=== PATIENT | female | born 1945 ===

== ENCOUNTER 2021-05-06 05:24 | Day surgery (SDC) | payer OTHER ==
[~2021-05-06 05:24] MED LIST: COZAAR100 MG PO; GLUMETZA500 MG PO; RALAFEN PO; SIMVASTATIN40 MG PO; SYNTHROID100 MCG PO
[2021-05-06] MEDS ORDERED: MACROBID 100 M100 MG PO (09:06)
[2021-05-06] MEDS ORDERED: ULTRACET PO (09:07)
== END 2021-05-06 12:10 | disposition home or self-care (01) ==
LOC: CIR.AMB 05:24
PROVIDERS: ATTEND Obstetrics & Gynecology Gynecology
DX: N81.11 Cystocele, midline (principal); N81.12 Cystocele, lateral; I10 Essential (primary) hypertension; G43.909 Migraine, unspecified, not intractable, without status migrainosus; E11.9 Type 2 diabetes mellitus without complications; Z20.822 Contact with and (suspected) exposure to COVID-19